=== PATIENT | male | born 1950 | race Caucasian/White ===

== ENCOUNTER 2018-09-10 08:41 | Emergency (ER) | payer MEDICARE, OTHER, SELFPAY ==
[2018-09-10 08:53] VITALS: BP 115/78; PULSE 70; RESP 13; TEMP 36.4; O2SAT 96
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
== END 2018-09-10 09:38 | disposition home or self-care (01) ==
PROVIDERS: Emergency Provider Emergency Medicine
DX: R51 Headache (principal); M54.2 Cervicalgia; V43.52XA Car driver injured in collision with other type car in traffic accident, initial encounter
CPT/HCPCS: 99282